=== PATIENT | male | born 1955 | race Caucasian/White ===

== ENCOUNTER 2020-02-12 20:58 | Emergency (ER) | payer MEDICARE ==
[~2020-02-12] VITALS: Ht 188 cm; Wt 127.2 kg
--- NOTE | 2020-02-12 21:42 | PHYS DOC ---
Past History Past Medical History: Diabetes, High Cholesterol, Hypertension, ID (CARMEN MENDOZA APRN) Past Medical History: CAD, Diabetes, Other (ORQUIDEA LEE MD) Past Surgical History: Pacemaker, Other Additional Past Surgical Histo: Cardiac Stent (CARMEN MENDOZA APRN) Alcohol Use: None (CARMEN MENDOZA APRN) Adult General Chief Complaint Chief Complaint: WEAKNESS/GENERALIZED HPI HPI Patient is a 64 year old male who presents with complaints of a sudden onset of syncope while urinating at approximately 1800 today. Patient states that he ambulated to his restroom at his house without difficulty or problems, and while urinating he became suddenly very dizzy and went to the ground, patient was unsure whether he passed out or not patient is unsure whether he hit his head or not. Patient states that he was very weak and dizzy at that time and it took him approximately 2 hours to crawl out of his bathroom to his living room where he called his son. Patient states his son called 911 to have been transported to the emergency department. Patient states that while he was in the living room after he called his son he became better and got up to a standing position and was able to give himself his normal insulin dose of 70/30 Novolin 44 units subcu. Patient states that he currently feels short of breath but believes that that is from wearing the mask. Patient denies any chest pains at this time. Patient denies any nasal congestion or cough. Patient denies any swelling of his extremities, patient denies visual changes, abdominal pain, vomiting, diarrhea, constipation, blood in the stools. Patient states that he does feel nauseated, patient states he also vomited after he had his syncopal episode x1 at home vomiting food particles x1. Patient denies any problems urinating. Patient denies back pain or pain in his joints. Patient denies rash, headaches, sensory changes, increased urination or increased thirst. Patient denies swelling of his glands, depressions, anxieties, homicidal or suicidal ideation. Patient denies any COVID-19 symptoms, patient denies the need for a COVID-19 test today. (CARMEN MENDOZA APRN) Review of Systems Review of Systems Constitutional: Denies fever or chills had an episode of dizziness and weakness at home that has resolved prior to arrival to the emergency department. Eyes: Denies change in visual acuity, redness, or eye pain HENT: Denies nasal congestion or sore throat Respiratory: Denies cough, complains of shortness of breath while wearing his protective Covid mask Cardiovascular: Denies chest pain or edema. GI: Denies abdominal pain, bloody stools or diarrhea. Complains of nausea with vomiting x1 with food particles after his syncopal episode at home. : Denies dysuria or hematuria Musculoskeletal: Denies back pain or joint pain Integument: Denies rash or skin lesions Neurologic: Denies headache, focal weakness or sensory changes Endocrine: Denies polyuria or polydipsia Psychiatric: Patient denies homicidal or suicidal ideation, patient denies recent depression or anxieties. All other systems were reviewed and found to be within normal limits, except as documented in this note. (CARMEN MENDOZA APRN) Allergies Allergies Allergies Coded Allergies Type Severity Reaction Last Updated Verified No Known Drug Allergies 02/12/20 No (CARMEN MENDOZA APRN) Physical Exam Physical Exam Constitutional: Well developed, well nourished, no acute distress, non-toxic appearance. HENT: Normocephalic, atraumatic, bilateral external ears normal, oropharynx moist, no oral exudates, nose normal. Patient does not have teeth, patient states she does not wear dentures. Eyes: PERRLA, EOMI, conjunctiva normal, no discharge. Pupils 4 mm Neck: Normal range of motion, no tenderness, supple, no stridor. Cardiovascular:Heart rate irregular rhythm, cardiac irregularities consistent with multifocal PVCs noted on bedside 5-lead EKG. Lungs & Thorax: Bilateral breath sounds clear to auscultation all lung rivas. Abdomen: Bowel sounds normal all 4 quadrants to auscultation., soft, no tenderness, no masses, no pulsatile masses. Skin: Warm, dry, no erythema, no rash. Back: No tenderness, no CVA tenderness. Extremities: No tenderness, no cyanosis, no clubbing, ROM intact, no edema. Neurologic: Alert and oriented X 3, normal motor function, normal sensory function, no focal deficits noted. NIHSS exam negative, swallow test deferred at this time. Psychologic: Affect normal, judgement normal, mood normal. (CARMEN MENDOZA APRN) Current Patient Data Vital Signs Vital Signs Date Time Temp Pulse Resp B/P (MAP) Pulse Ox O2 Delivery O2 Flow Rate FiO2 02/12/20 21:06 98.2 114 16 150/81 (104) 98 Room Air (CARMEN MENDOZA APRN) EKG EKG EKG performed at 2134 by ED nursing staff with a heart rate of 109 shows a sinus tachycardia with occasional multifocal PVC sees both single PVC beats and couplet PVC beats [place] interval 0.168, QTc interval 0.451, no STEMI noted, no coronary syndrome noted, EKG interpreted by ED attending Dr. Lee. (CARMEN MENDOZA APRN) Radiology/Procedures Radiology/Procedures [] (CARMEN MENDOZA APRN) Radiology/Procedures [address] [address] IMAGING REPORT Signed PATIENT: CARMEN WHITEHEAD ACCOUNT: [id number] : 1955 LOCATION: ER AGE: 64 SEX: M EXAM STATUS: PRE ER ORD. PHYSICIAN: CARMEN MENDOZA APRN REASON: SHORT OF BREATH PROCEDURE: CHEST PA & LATERAL Exam: Chest 2 views INDICATION: Shortness of breath TECHNIQUE: Frontal and lateral views the chest Comparisons: None FINDINGS: The cardiomediastinal silhouette and pulmonary vessels are within normal limits. Patchy airspace disease at the right middle lobe. Nodular opacities seen in the right lower lobe superior segment. No pleural effusion. IMPRESSION: 1. Patchy airspace disease at the medial right middle lobe. 2. A 1 cm nodule at the superior segment of the right lower lobe, CT is recommended for further evaluation. Electronically signed by: Carlton Asher MD (02/12/2020 10:32 PM) [id number] DICTATED AND SIGNED BY: CARLTON ASHER MD DATE: 02/12/202231 CC: CARMEN MENDOZA APRN ~ [address] [address] IMAGING REPORT Signed PATIENT: CARMEN WHITEHEAD ACCOUNT: [id number] : 1955 LOCATION: ER AGE: 64 SEX: M EXAM STATUS: PRE ER ORD. PHYSICIAN: CARMEN MENDOZA APRN REASON: SYNCOPAL EPISODE WITH FALL PROCEDURE: CT HEAD AND CERVICAL SPINE WO Exam: CT head and cervical spine without contrast INDICATION: Syncopal episode with fall TECHNIQUE: Sequential axial images through the head and cervical spine were obtained without the administration of IV contrast. Comparisons: None FINDINGS: Head: No focal parenchymal lesion or hemorrhage is identified. There is no midline shift or sulcal effacement. No acute vascular territory infarction is identified. Nick-white distinction is preserved. The ventricular system is within normal limits without compression hydrocephalus. The basal cisterns are well maintained. The visualized portions of the paranasal sinuses and mastoid air cells are well-pneumatized. No acute fractures. Cervical spine: There is straightening of cervical spine which may be positional. Vertebral body heights are well-maintained. Fracture to the cervical spine is not identified. Multilevel spondylotic change in cervical spine with degenerative disc disease greatest at C5-C6 and C6-C7. Mild bilateral facet arthropathy is also noted. Visualized paraspinal soft tissues are unremarkable. IMPRESSION: 1. No acute intracranial abnormality. 2. Negative CT C-spine for acute traumatic injury. Exposure: One or more of the following in the visualized dose reduction techniques were utilized for this examination: 1. Automated exposure control 2. Adjustment of the MA and/or KV according to patient size Use of iterative of reconstructive technique Electronically signed by: Carlton Asher MD (02/12/2020 10:34 PM) [id number] DICTATED AND SIGNED BY: CARLTON ASHER MD DATE: 02/12/20 2234 CC: CARMEN MENDOZA APRN ~ (ORQUIDEA LEE MD) Heart Score Risk Factors: Risk Factors: DM, Current or recent (<one month) smoker, HTN, HLP, family history of CAD, obesity. Risk Scores: Risk Factors: DM, Current or recent (<one month) smoker, HTN, HLP, family history of CAD, obesity. (CARMEN MENDOZA APRN) HEART Score for Chest Pain: HEART Score for Chest Pain Response (Comments) Value History Moderately Suspicious 1 ECG Nonspecific Repolarizatio 1 Age >45 - < 65 1 Risk Factors 1 or 2 Risk Factors 1 Troponin < Normal Limit 0 Total 4 Course & Med Decision Making Course & Med Decision Making Pertinent Labs and Imaging studies reviewed. (See chart for details) 64-year-old male arrives to the emergency department with stable vital signs via EMS. Patient reports having a syncopal episode at home while urinating. Patient stated that it took him approximately 2 hours to crawl from his bathroom to his living room where he called his son. Patient states that his son called EMS to transport him here to the emergency department which during that time he became feeling better and was able to get up and give himself his own insulin. Patient states he is unsure whether he hit his head or not and is unsure whether he completely passed out or not. Patient does not complain of chest pain, however complains of some shortness of breath when he wears his mask to protect him from the COVID-19 virus. And ER work-up was started, bedside blood sugar was 318. A liter of normal saline was started and insulin was deferred at this time related to the patient stating that he gave himself 44 units of 70/30 nodule and insulin just prior to EMS arrival to transport him here to the emergency department. Lab work was drawn by ED nursing staff and is pending. A NIHSS stroke scale was performed with a score of 0, the swallow test was deferred at this time pending head CT results. The patient states that he feels much better now. A EKG was performed and interpreted by ED attending Dr. Lee. This patient's case was discussed with Dr. Lee, and patient care was taken over by Dr. Lee. (CARMEN MENDOZA APRN) Course & Med Decision Making Pt. post 2 liters of NS still unable to provide urine. Review of CXR suggestive of atypical pneumonia. CT angio of chest pending at shift change. Pt. endorsed to Dr. Shafer. He will make final disposition. Impression: 1. Syncope 2. DM 3. Leukocytosis 13.6 4. Anemia Hgb- 12.4 5. Mild elevation LFT ast 44, ALT 66 6. Malnutrition 2.9 Albumin 7. Atypical Pneumonia (ORQUIDEA LEE MD) Course & Med Decision Making Comprehensive signout received from off going physician. I reviewed patient's chart and ER work-up so far I personally saw and evaluated patient myself repeating certain aspects of history and physical exam. Discussed most likely diagnoses of right middle lobe pneumonia with potential for cavitary lesion versus mass versus other I discussed role of continued antibiotics. Discussed inpatient versus outpatient treatment. Patient lives home alone but has good family support, states son is local and will be able to help him in the short-term. He is hemodynamically stable and ambulatory without issue during exam Joint decision to discharge home with amoxicillin and azithromycin prescriptions with extremely close follow-up in upcoming 5 days with primary care physician. Patient reports great report with primary care physician, will have no trouble following up in outpatient setting to have repeat chest films performed Strict return precautions were discussed with good understanding by patient, all questions and concerns addressed prior to ER departure in stable condition (RACHEL SHAFER DO) Dragon Disclaimer Dragon Disclaimer This electronic medical record was generated, in whole or in part, using a voice recognition dictation system. (CARMEN MENDOZA APRN) NIH Stroke Scale: NIH Stroke Scale Response (Comments) Value Level of Consciousness: 0 Alert/Responsive 0 LOC Questions: 0 Answers both correctly 0 LOC Commands: 0 Performs both tasks 0 Best Gaze: 0 Normal 0 Visual: 0 No visual loss 0 Facial Palsy: 0 Normal, symmetrical 0 Motor - Left Arm 0 No drift 0 Motor - Right Arm 0 No drift 0 Motor - Left Leg 0 No drift 0 Motor: Right Leg 0 No drift 0 Limb Ataxia: 0 Absent 0 Sensory: 0 No loss 0 Best Language: 0 Normal 0 Dysathria: 0 Normal 0 Extinction and Inattention: 0 Normal (BEDSIDE [facility] EXAM NEGATIVE, S WALLOW TEST DEFERRED.) 0 Total 0 Departure Departure: Impression: Primary Impression: Right middle lobe pneumonia Additional Impression: Type 2 diabetes mellitus Disposition: DC HOME SELF CARE/HOMELESS Condition: STABLE Patient Instructions: Pneumonia, Adult Additional Instructions: As discussed prior to ER departure, please call your primary care physician immediately after ER departure to schedule outpatient follow-up in upcoming 72 hours. Please take x2 prescribed antibiotics to completion As discussed, you will require repeat radiographs/imaging of your chest, please discuss this need with your primary care physician during follow-up If any concerning signs or symptoms present prior to outpatient follow-up, please do not hesitate to come back for repeat evaluation It was a pleasure to take care of you and I wish you a speedy recovery! Scripts Azithromycin (AZITHROMYCIN TABLET) 250 Mg Tablet 250 MG PO DAILY for ANTI-BIOTIC, #4 TAB 0 Refills Prov: RACHEL SHAFER DO 02/13/20 Amoxicillin (AMOXICILLIN) 500 Mg Capsule 2 CAP PO BID for PNEUMONIA, #20 CAP Prov: RACHEL SHAFER DO 02/13/20 Gabe Disclaimer This chart was dictated in whole or in part using Voice Recognition software in a busy, high-work load, and often noisy Emergency Department environment. It may contain unintended and wholly unrecognized errors or omissions. (ORQUIDEA LEE MD) Attending Co-Sign Attending Co-Sign The patient was seen and interviewed as well as examined at the bedside. The chart was reviewed. The case was discussed. Agree with the plan of care. (ORQUIDEA LEE MD) Problem Qualifiers CARMEN MENDOZA APRN Feb 12, 2020 21:42 ORQUIDEA LEE MD Feb 13, 2020 04:47 RACHEL SHAFER DO Feb 13, 2020 06:57
[2020-02-12 22:00] LABS: BASO % 0 % (0-3); EOS % 0 % (0-3); HEMATOCRIT 36.6 % (39.0-53.0); HEMOGLOBIN 12.4 g/dL (13.0-17.5); LYMPH # 1.4 x10^3/uL (1.0-4.8); LYMPH % 10 % (24-48); MEAN CORPUSCULAR HEMOGLOBIN 30 pg (25-35); MEAN CORPUSCULAR HGB CONC 34 g/dL (31-37); MEAN CORPUSCULAR VOLUME 88 fL (79-100); MONO # 0.9 x10^3/uL (0.0-1.1); MONO % 7 % (0-9); NEUT # 11.3 x10^3uL (1.8-7.7); NEUT % 83 % (31-73); PLATELET COUNT 287 x10^3/uL (140-400); RED BLOOD COUNT 4.16 x10^6/uL (4.30-5.70); WHITE BLOOD COUNT 13.6 x10^3/uL (4.0-11.0)
[2020-02-12] MEDS ORDERED: IV NORMAL SALINE 1,000ML 1,000 ML IV ONE (22:00)
[2020-02-12 22:25] LABS: CALCIUM 10.2 mg/dL (8.5-10.1); CREATININE 1.1 mg/dL (0.7-1.3); GFR 67.4; POTASSIUM 3.8 mmol/L (3.5-5.1)
--- NOTE | 2020-02-12 22:34 | RAD ---
Exam: Chest 2 views INDICATION: Shortness of breath TECHNIQUE: Frontal and lateral views the chest Comparisons: None FINDINGS: The cardiomediastinal silhouette and pulmonary vessels are within normal limits. Patchy airspace disease at the right middle lobe. Nodular opacities seen in the right lower lobe superior segment. No pleural effusion. IMPRESSION: 1. Patchy airspace disease at the medial right middle lobe. 2. A 1 cm nodule at the superior segment of the right lower lobe, CT is recommended for further evaluation. Electronically signed by: Carlton Stroud MD (02/12/2020 10:32 PM) [id number]
--- NOTE | 2020-02-12 22:37 | RAD ---
Exam: CT head and cervical spine without contrast INDICATION: Syncopal episode with fall TECHNIQUE: Sequential axial images through the head and cervical spine were obtained without the administration of IV contrast. Comparisons: None FINDINGS: Head: No focal parenchymal lesion or hemorrhage is identified. There is no midline shift or sulcal effacement. No acute vascular territory infarction is identified. Nick-white distinction is preserved. The ventricular system is within normal limits without compression hydrocephalus. The basal cisterns are well maintained. The visualized portions of the paranasal sinuses and mastoid air cells are well-pneumatized. No acute fractures. Cervical spine: There is straightening of cervical spine which may be positional. Vertebral body heights are well-maintained. Fracture to the cervical spine is not identified. Multilevel spondylotic change in cervical spine with degenerative disc disease greatest at C5-C6 and C6-C7. Mild bilateral facet arthropathy is also noted. Visualized paraspinal soft tissues are unremarkable. IMPRESSION: 1. No acute intracranial abnormality. 2. Negative CT C-spine for acute traumatic injury. Exposure: One or more of the following in the visualized dose reduction techniques were utilized for this examination: 1. Automated exposure control 2. Adjustment of the MA and/or KV according to patient size Use of iterative of reconstructive technique Electronically signed by: Carlton Stroud MD (02/12/2020 10:34 PM) [id number]
[2020-02-12 22:40] LABS: ALBUMIN 2.9 g/dL (3.4-5.0); ALBUMIN/GLOBULIN RATIO 0.6 (1.0-1.7); TOTAL BILIRUBIN 0.8 mg/dL (0.2-1.0)
[2020-02-13] MEDS ORDERED: ONDANSETRON PF 4 MG/2 ML VIAL. IVP ONE (03:15)
[2020-02-13] MEDS ORDERED: IV NORMAL SALINE 1,000ML 1,000 ML IV ONE (04:15)
[2020-02-13] MEDS ORDERED: INSULIN REGULAR 100 UNIT/ML 3ML VIAL. SQ ONE (04:15)
[2020-02-13] MEDS ORDERED: CONTRAST GIVEN. MC PRN (05:15)
[2020-02-13] MEDS ORDERED: IOHEXOL 350 MG/ML 100 ML VIAL. IV ONE (05:30)
[2020-02-13] MEDS ORDERED: AZITHROMYCIN 250 MG TABLET. PO ONE (05:30)
--- NOTE | 2020-02-13 05:49 | EKG ---
[facility] ED [facility] [address] [place] [id number] Test Date: 2020-02-12 Test Time: 21:34:57 Pat Name: CARMEN WHITEHEAD Department: Room: Gender: M [employer]: : 1955 Requested By: CARMEN MENDOZA Order Number: [id number] Reading MD: Measurements Intervals [place] Rate: 109 P: 90 [place]: 168 QRS: 15 QRSD: 94 T: 34 QT: 334 QTc: 451 Interpretive Statements SINUS TACHYCARDIA VENTRICULAR PREMATURE COMPLEX(ES) ABNORMAL ECG RI6.02 No previous ECG available for comparison
[2020-02-13] MEDS ORDERED: IV NORMAL SALINE 50ML 50 ML ONE (05:52)
[2020-02-13] MEDS ORDERED: cefTRIAXone SODIUM 1 GM VIAL ONE (05:52)
[2020-02-13] MEDS ORDERED: IV RINGERS SOLUTION,LACTATED 1,000 ML IV ONE (06:00)
--- NOTE | 2020-02-13 06:19 | RAD ---
Study: CT CHEST WITH CONTRAST - PULMONARY ANGIOGRAM History: Dyspnea. Pleuritic chest pain. Pulmonary embolism. Comparison: None. Technique: Helical CT of the chest performed after the administration of 100 cc Omnipaque 350 intravenous contrast and timed for angiographic evaluation of the pulmonary arteries per PE protocol. Coronal and sagittal 3D MIP reformations were obtained. One or more of the following individualized dose reduction techniques were utilized for this examination: 1. Automated exposure control 2. Adjustment of the mA and/or kV according to patient size 3. Use of iterative reconstruction technique. Findings: Pulmonary Arteries: No main, lobar or segmental pulmonary embolism. Heart/Systemic Vasculature: Scattered calcified and noncalcified atheromatous plaque. No great vessel origin stenosis. Prominence of the ascending aorta measuring 4.4 cm transverse. Extensive calcific coronary artery disease. Left chest wall single-lead AICD. Mediastinum: Scattered granulomas. Noncalcified subcarinal lymph node is prominent in size at 1.5 cm short axis. Additional mediastinal and hilar lymph nodes are within normal limits. Fluid scattered throughout the esophageal lumen. No abnormal esophageal dilatation or wall thickening. No pericardial effusion. Lungs: Dense consolidation with a few foci of gas centrally and peripheral groundglass opacification within the right middle lobe and abutting the right mediastinal border. Benign hyperdensity abutting the right major fissure. No suspicious solitary pulmonary nodule throughout either lung based on size criteria. Mild emphysema. Neck/Axilla/Body Wall: Small foci of left thyroid lobe mineralization. No dominant nodule that would warrant further assessment with sonography. No axillary adenopathy. Upper Abdomen: No acute abnormality. Bones: No acute or aggressive osseous process. Scattered degenerative changes. Miscellaneous: None. IMPRESSION: 1. No main, lobar or segmental pulmonary embolism. 2. Dense consolidative opacity within the right middle lobe abutting the right aspect of the mediastinum. Surrounding groundglass haziness and there are a few foci of gas centered within the consolidation. The leading consideration is a bacterial pneumonia potentially with early cavitation. Short-term follow-up is needed to confirm improvement and exclude an underlying mass. 3. Solitary prominent mediastinal lymph node that is subcarinal in location measuring 1.5 cm short axis. Attention on the short-term follow-up for the right middle lobe abnormality. 4. Additional chronic observations detailed in the body of the report. Electronically signed by: JANNY SKELTON MD (02/13/2020 6:17 AM) [id number]
[2020-02-13 07:27] LABS: BARBITURATES NEG (NEG); BENZODIAZEPINES NEG (NEG); CANNABINOIDS NEG (NEG); COCAINE NEG (NEG); METHADONE NEG (NEG); OPIATES NEG (NEG); PHENCYCLIDINE NEG (NEG)
[2020-02-13 07:28] LABS: AMPHETAMINE/METHAMPHETAMINE NEG (NEG)
[2020-02-13 07:47] LABS: BACTERIA,URINE FEW /HPF (0-FEW); BILIRUBIN,URINE NEG (NEG); CLARITY,URINE HAZY; COLOR,URINE AMBER; GLUCOSE,URINE >=1000 mg/dL (NEG); NITRITE,URINE NEG (NEG); RBC,URINE OCC /HPF (0-2); SQUAMOUS EPITHELIAL CELL,UR FEW /LPF; UROBILINOGEN,URINE 0.2 mg/dL (0.2 mg/dL)
[2020-02-13 07:48] LABS: HYALINE CASTS, URINE OCC /HPF
[2020-02-13] MEDS ORDERED: INSULIN NPH/REG HUM 70/30 300 UNITS/3 ML VIAL. SQ SCH (08:00)
[2020-02-13 08:30] VITALS: BP 141/96
[2020-02-13] MEDS ORDERED: AZIT250T6 PO (08:35)
[2020-02-13] MEDS ORDERED: AMOX500C PO (08:35)
== END 2020-02-13 08:49 | disposition home or self-care (01) ==
LOC: ER 20:58
DX: R55 Syncope and collapse (principal); E11.9 Type 2 diabetes mellitus without complications; D72.829 Elevated white blood cell count, unspecified; D64.9 Anemia, unspecified; R79.89 Other specified abnormal findings of blood chemistry; E46 Unspecified protein-calorie malnutrition; J18.9 Pneumonia, unspecified organism; E78.00 Pure hypercholesterolemia, unspecified; I10 Essential (primary) hypertension; I25.2 Old myocardial infarction; I25.10 Atherosclerotic heart disease of native coronary artery without angina pectoris; Z68.36 Body mass index [BMI] 36.0-36.9, adult; Z95.0 Presence of cardiac pacemaker
CPT/HCPCS: 36415; 70450; 71046; 71275; 72125; 80053; 80307; 81001; 82553; 82947; 83735; 84484; 85025; 87040; 87205; 93005; 96361; 96365; 96366; 96372; 96375; 99285; J0456; J0696; J1815; J2405; J7030; J7120; Q9967; 96360